=== PATIENT | male | born 1960 | race Caucasian/White ===

== ENCOUNTER 2021-06-22 15:25 | Emergency (ER) | payer OTHER, SELFPAY ==
[2021-06-22 15:36] VITALS: BP 119/73; PULSE 92; RESP 18; TEMP 36.6; O2SAT 98; BMI 25.7
--- NOTE | 2021-06-22 15:43 | DI.RAD.S_ITS ---
PROCEDURE: XR CHEST 1V INDICATIONS: chest pain TECHNIQUE: One view of the chest was acquired. COMPARISON: None. FINDINGS: Surgical changes and devices: None. Lungs and pleura: Lungs are clear. No pleural effusions or pneumothorax. Mediastinum: Mediastinal contours appear normal. Heart size is normal. Bones and chest wall: No suspicious bony lesions. Overlying soft tissues appear unremarkable. IMPRESSION: No acute cardiopulmonary abnormality. Dictated by: Obey Meyer M.D. on 06/22/2021 at 16:16 Approved by: Obey Meyer M.D. on 06/22/2021 at 16:16
[2021-06-22 16:04] LABS: Add Manual Diff / Slide Review NO; Basophils Absolute Auto 100 /uL (0-100); Basophils Percent Auto 0.9 % (0-2); Eosinophils Absolute Auto 200 /uL (0-450); Eosinophils Percent Auto 2.4 % (2-4); Hematocrit 44.4 % (41-53); Hemoglobin 15.1 g/dL (13.5-17.5); Lymphocytes Absolute Auto 1200 /uL (1100-4500); Lymphocytes Percent Auto 17.3 % (25-40); Mean Corpuscular HGB Conc 34.1 % (30-36); Mean Corpuscular Hemoglobin 30.4 PG (26-34); Mean Corpuscular Volume 89.2 fL (80-100); Monocytes Absolute Auto 700 /uL (0-900); Monocytes Percent Auto 10.5 % (3-14); Neutrophils Absolute Auto 4600 /uL (1500-7000); Neutrophils Percent Auto 68.9 % (50-75); Platelet Count 275 X10^3/uL (150-400); Red Blood Cell Count 4.97 X10^6/uL (4.5-5.9); Red Cell Distribution Width 13.8 % (11.6-14.8); White Blood Cell Count 6.7 X10^3/uL (4.5-11.0)
[2021-06-22 16:19] LABS: Alanine Aminotransferase 23 IU/L (<50); Albumin Globulin Ratio 1.3 (1.0-2.8); Alkaline Phosphatase 57 U/L (38-126); Aspartate Aminotransferase 24 IU/L (17-59); BUN Creatinine Ratio 16.7 (6-22); Bilirubin Total 0.5 mg/dL (0.2-1.3); Blood Urea Nitrogen 19 mg/dL (9-20); Calcium 9.5 mg/dL (8.4-10.2); Carbon Dioxide 29 mmol/L (22-32); Chloride 106 mmol/L (98-107); Creatine Kinase 66 U/L (55-170); Estimated Glomerular Filt Rate > 60.0 mL/min (>60); Glucose 96 mg/dL (70-100); HEMOLYSIS < 15 (0-50); Lipase 97 U/L (23-300); Potassium 4.2 mmol/L (3.4-5.1); Sodium 143 mmol/L (137-145)
--- NOTE | 2021-06-22 16:20 | PC.NURSE ---
pt states he woke up yesterday with pulse in his ear and feeling like his HR is irregular. pt states intermittent dizziness x2 since yesterday none at this time.
[2021-06-22 16:30] LABS: Troponin I < 0.012 ng/mL (0.01-0.034)
[2021-06-22 17:42] VITALS: PULSE 87; RESP 15; O2SAT 96
[2021-06-22 18:00] VITALS: BP 116/74; PULSE 84; RESP 22; O2SAT 97
--- NOTE | 2021-06-22 18:08 | ED_ITS ---
HPI - Arrhythmia/Palpitations General Chief Complaint: Arrhythmia/Palpitations Stated Complaint: abnormal EKG Time Seen by Provider: 06/22/21 17:43 Source: patient Mode of arrival: Ambulatory Limitations: no limitations History of Present Illness HPI narrative: 60-year-old gentleman with no significant medical history on no current prescription medications noted last night that he was having some hot and cold flashes checked his pulse and found to be somewhat a retic. He was not describing specific palpitations had no chest pain, orthopnea, dyspnea, diaphoresis, nausea. He has had no recent fevers, cough, vomiting or diarrhea, no abdominal pain no complaints of increased lower extremity edema. He has neve r had a stroke, cardiac event or atrial fibrillation Related Data Allergies Allergy/AdvReac Type Severity Reaction Status Date / Time No Known Drug Allergies Allergy Verified 06/22/21 15:36 Review of Systems Review of Systems Narrative: Remainder of complete review of systems is otherwise unremarkable except for that included in the HPI. Patient History Social History Smoking Status: Never smoker Smoking Status: Never smoker Substance Use Type: does not use Exam Narrative Exam Narrative: General: Healthy appearing, in no acute distress. Able to give a complete and coherent history. Well-nourished well-developed HEENT: Moist mucous membranes, normal sclera with reactive pupils, Neck: No JVD, supple Respiratory: Lungs are clear to auscultation, no wheezing no rales no rhonchi. Full and symmetrical air movement Cardiac: Regular rate and rhythm no murmurs no bruits Abdomen: Soft, nontender, good bowel tones, no flank pain Skin: Warm and dry, no rashes Neurologic: Grossly neurologically intact with no obvious asymmetries or abnormalities Extremities: No trauma, well perfused Psych: Cooperative, appropriate insight and affect Initial Vital Signs Initial Vital Signs: Vital Signs Temperature 97.8 F 06/22/21 15:36 Pulse Rate 92 H 06/22/21 15:36 Respiratory Rate 18 06/22/21 15:36 Blood Pressure 119/73 06/22/21 15:36 Pulse Oximetry 98 06/22/21 15:36 Course Orders Ordered: ED Orders 06/22/21 15:43 XR chest 1V Stat EKG-12 Lead Stat 06/22/21 15:45 Complete Blood Count AUTO DIFF Stat Comprehensive Metabolic Panel Stat Lipase Stat Troponin & CK Cardiac Panel Stat 06/22/21 18:27 EKG-12 Lead Stat Vital Signs Vital signs: Vital Signs - 8 hr 06/22/21 15:36 Temperature 97.8 F Pulse Rate 92 H Respiratory Rate 18 Blood Pressure 119/73 Pulse Oximetry 98 MDM - Arrhythmia/Palpitations Lab Data Result diagrams: 06/22/21 15:45 06/22/21 15:45 Labs: Lab Results 06/22/21 06/22/21 Range/Units 15:45 15:45 WBC 6.7 (4.5-11.0) X10^3/uL RBC 4.97 (4.5-5.9) X10^6/uL Hgb 15.1 (13.5-17.5) g/dL Hct 44.4 (41-53) % MCV 89.2 (80-100) fL MCH 30.4 (26-34) PG MCHC 34.1 (30-36) % RDW 13.8 (11.6-14.8) % Plt Count 275 (150-400) X10^3/uL Neut % (Auto) 68.9 (50-75) % Lymph % (Auto) 17.3 L (25-40) % [place] % (Auto) 10.5 (3-14) % Eos % (Auto) 2.4 (2-4) % Baso % (Auto) 0.9 (0-2) % Neut # (Auto) 4600 (2971-8552) /uL Lymph # (Auto) 1200 (1095-8682) /uL [place] # (Auto) 700 (0-900) /uL Eos # (Auto) 200 (0-450) /uL Baso # (Auto) 100 (0-100) /uL Sodium 143 (137-145) mmol/L Potassium 4.2 (3.4-5.1) mmol/L Chloride 106 (98-107) mmol/L Carbon Dioxide 29 (22-32) mmol/L BUN 19 (9-20) mg/dL Creatinine 1.14 (0.66-1.25) mg/dL Estimated GFR > 60.0 (>60) mL/min BUN/Creatinine Ratio 16.7 (6-22) Glucose 96 (70-100) mg/dL Calcium 9.5 (8.4-10.2) mg/dL Total Bilirubin 0.5 (0.2-1.3) mg/dL AST 24 (17-59) IU/L ALT 23 (<50) IU/L Alkaline Phosphatase 57 (38-126) U/L Total Creatine Kinase 66 (55-170) U/L CK-MB (CK-2) TNP CK-MB (CK-2) Rel Index TNP Troponin I < 0.012 (0.01-0.034) ng/mL Total Protein 7.0 (6.3-8.2) g/dL Albumin 4.0 (3.5-5.0) g/dL Globulin 3.0 (1.7-4.1) g/dL Albumin/Globulin Ratio 1.3 (1.0-2.8) Lipase 97 (23-300) U/L Imaging Data Chest x-ray: Radiologist's Impresson: FINDINGS:? ? Surgical changes and devices:? None.? ? Lungs and pleura:? Lungs are clear.? No pleural effusions or pneumothorax.? ? Mediastinum:? Mediastinal contours appear normal.? Heart size is normal.? ? Bones and chest wall:? No suspicious bony lesions.? Overlying soft tissues appear unremarkable.? ? IMPRESSION:? No acute cardiopulmonary abnormality. ? ? Dictated by: Obey Meyer M.D. on 06/22/2021 at 16:16 ?? ECG Data Interpretation: 15:59 Atrial fibrillation at a rate of 91 Normal axis No acute ischemic changes MDM Narrative Medical decision making narrative: 60-year-old gentleman with no significant medical history presents with atrial fibrillation. He spontaneously converted at approximately 6:15 a.m. tonight prior to any interventions in the emergency department. Labs are entirely normal including all electrolytes and troponin. His [id number] score is 0. Very low risk for stroke. No anticoagulation is recommended. Findings reviewed with the patient. He is given information on atrial fibrillation. Will recommend that he follow-up with Cardiology and he is given information to schedule an appointment with Dr. Rodriguez at [facility] Will ask him to return if he has recurrent symptoms. Discharge Plan Departure Patient Disposition: Home Clinical Impression: New onset a-fib, Paroxysmal A-fib Instructions: DI for Atrial Fibrillation Activity Restrictions/Additional Instructions: Thank you for coming in today You had approximately 24 hours of atrial fibrillation that was minimally symptomatic for you. Your workup in the emergency room is very encouraging. Your lab work including heart studies and x-ray are reassuring. Your initial EKG was atrial fibrillation that was rate controlled and approximately 615 tonight you spontaneously converted to normal sinus rhythm. I have given you copies of both of these EKGs and would encourage you to schedule an appointment with Dr. Rodriguez, at [facility]. The phone number is [phone]. Please let them know that you are seen in the emergency room for new onset paroxysmal atrial fibrillation, you are now in sinus rhythm but would like to schedule a follow-up appointment. Atrial fibrillation can put you at risk for stroke however, you are healthy enough at this point that no additional anticoagulation is recommended for you. If you notice recurrent irregular heartbeat particularly if it is associated with sweating, shortness of breath or any type of pain you need to return to the ER I wish you the best
[2021-06-22 18:30] VITALS: BP 128/77; PULSE 82; RESP 16; O2SAT 97
== END 2021-06-22 19:00 | disposition home or self-care (01) ==
PROVIDERS: Emergency Medicine; Emergency Provider Emergency Medicine
DX: I48.0 Paroxysmal atrial fibrillation (principal)
CPT/HCPCS: 36415; 71045; 80053; 82550; 83690; 84484; 85025; 93005; 93010; 99283; 99284

== ENCOUNTER → 2021-08-20 15:30 | Outpatient (CLI) | payer OTHER, SELFPAY ==
--- NOTE | 2021-08-20 16:06 | DI.ECHO.S_ITS ---
:Reason For Study: ATRIAL FIBRILLATION : :Ordering Physician: STONE, : :JAIME Performed By: Sadie Schwarz : :Referring: NEGRO RITTER : + + Interpretation Summary The left ventricle is normal in size. Left ventricular wall thickness is at the upper limits of normal. The ejection fraction is estimated to be 55-60%. The right ventricle is normal in size and function. The right ventricular systolic pressure is estimated to be at least 17 mmHg based on an estimated right atrial pressure of 3 mm Hg. No significant valvular disease. Procedure: A two-dimensional transthoracic echocardiogram with color flow and Doppler was performed. The study quality was technically adequate. There is no prior echocardiogram noted for this patient. The patient was in sinus rhythm with heart rates between 68-80 bpm during the exam. Left Ventricle: The left ventricle is normal in size. Left ventricular wall thickness is at the upper limits of normal. The ejection fraction is estimated to be 55-60%. There are no obvious focal wall motion abnormalities noted but poor endocardial definition reduces the sensitivity for the detection of such. Diastolic parameters suggest probable normal left ventricular diastolic function and normal filling pressures. Right Ventricle: The right ventricle is normal in size and function. Atria: The left atrial size is normal. Right atrial size is normal. There is no Doppler evidence for an interatrial shunt. Mitral Valve: The mitral valve is normal in structure and function. There is trace mitral regurgitation. Aortic Valve: The aortic valve is trileaflet. The aortic valve opens well. There is no aortic valve stenosis. No aortic regurgitation is present. Tricuspid Valve: The tricuspid valve is normal in structure and function. The right ventricular systolic pressure is estimated to be at least 17 mmHg based on an estimated right atrial pressure of 3 mm Hg. There is trace tricuspid regurgitation. Pulmonic Valve: The pulmonic valve is not well visualized. There is trace pulmonic regurgitation. Great Vessels: The aortic root is normal size. The dimensions of the ascending aorta are normal. The IVC is of normal diameter and collapses greater than 50% with a sniff. This suggests a low right atrial pressure of 3 mm Hg. Pericardium/ Pleura There is no pericardial effusion. There is no pleural effusion. MMode/2D Measurements & Calculations LVIDd: 4.2 cm LVOT diam: 2.1 cm LVIDs: 2.8 cm Ao root diam: 3.3 cm FS: 33.5 % asc Aorta Diam: 3.3 cm IVSd: 1.1 cm LVPWd: 1.0 cm LV craig. diameter/BSA (cm/m^2): 2.1 LV sys. diameter/BSA (cm/m^2): 1.4 LA A2 area: 17.9 cm2 RA long axis: 4.5 cm LA A4 area: 15.6 cm2 RA area: 14.8 cm2 LA length (vol): 4.7 cm RA vol: 41.5 ml LA vol: 50.4 ml RA : 20.5 ml/m2 LA vol index: 24.9 ml/m2 IVC diam: 1.2 cm RVD1 (basal): 3.6 cm TAPSE: 2.0 cm Doppler Measurements & Calculations Ao V2 max: 125.4 cm/sec LVOT Max Francis: 70.8 cm/sec Ao V2 mean: 85.7 cm/sec LV V1 max P.0 mmHg Ao max P.3 mmHg LV V1 VTI: 13.7 cm Ao mean P.4 mmHg DEVON(I,D): 2.0 cm2 Ao V2 VTI: 23.8 cm DEVON(V,D): 2.0 cm2 sev ratio: 0.58 DEVON indexed to BSA (cm^2/m^2): 0.99 MV E max francis: 55.6 cm/sec TR max francis: 189.4 cm/sec MV A max francis: 67.4 cm/sec TR max P.3 mmHg MV E/A: 0.82 PA V2 max: 82.7 cm/sec Med Peak E' Francis: 5.8 cm/sec PA V2 mean: 54.8 cm/sec E/E' med: 9.6 PA mean P.4 mmHg Lat Peak E' Francis: 6.2 cm/sec PA pr(Accel): 25.9 mmHg E/E' lat: 9.0 E/e' average: 9.3 MV dec time: 0.21 sec SV(LVOT): 47.6 ml Reading Physician:NITZA
== END ==
PROVIDERS: Referring Provider Physician Assistant; Visit Provider Physician Assistant
DX: I48.91 Unspecified atrial fibrillation (principal)
CPT/HCPCS: 93306

== ENCOUNTER → 2022-01-09 08:45 | Outpatient (CLI) | payer OTHER, SELFPAY ==
--- NOTE | 2022-01-09 08:49 | DI.RAD.S_ITS ---
PROCEDURE: XR RIBS RT MIN 3V W CXR 1V INDICATIONS: rib pain TECHNIQUE: 2 views of the right ribs were acquired, along with a single view chest. COMPARISON: None. FINDINGS: Surgical changes and devices: None. Bones and chest wall: No fractures or dislocations. No suspicious bony lesions. Overlying soft tissues appear unremarkable. Lungs and pleura: No pleural effusions or pneumothorax. Lungs appear clear. Mediastinum: Mediastinal contours appear normal. Heart size is normal. IMPRESSION: Normal PA view of the chest and right ribs. Dictated by: Jagdeep Noe M.D. on 01/09/2022 at 11:27 Approved by: Jagdeep Noe M.D. on 01/09/2022 at 11:29
== END ==
PROVIDERS: Referring Provider Nurse Practitioner Family; Visit Provider Nurse Practitioner Family
DX: S20.219A Contusion of unspecified front wall of thorax, initial encounter (principal); X58.XXXA Exposure to other specified factors, initial encounter
CPT/HCPCS: 71101

== ENCOUNTER → 2022-03-20 14:51 | Outpatient (CLI) | payer OTHER, SELFPAY ==
--- NOTE | 2022-03-20 14:55 | DI.RAD.S_ITS ---
PROCEDURE: XR HAND LT MIN 3V INDICATIONS: L I laceration hand, base of thumb TECHNIQUE: 3 views of the hand(s) acquired. COMPARISON: None. 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 No fracture. No radiopaque foreign body. IMPRESSION: No fracture or radiopaque foreign body. Mild degenerative changes in the interphalangeal joints of the 1st and 3rd digits as well as in the distal radioulnar joint. Dictated by: Bennie Gallo M.D. on 03/20/2022 at 16:44 Approved by: Bennie Gallo M.D. on 03/20/2022 at 16:45
== END ==
PROVIDERS: Referring Provider Nurse Practitioner Family; Visit Provider Nurse Practitioner Family
DX: S61.412A Laceration without foreign body of left hand, initial encounter (principal); X58.XXXA Exposure to other specified factors, initial encounter
CPT/HCPCS: 73130